=== PATIENT | male | born 1955 | race Caucasian/White ===

== ENCOUNTER 2016-10-30 12:56 | Emergency (ER) | payer OTHER ==
[2016-10-30 13:19] VITALS: BP 150/86; PULSE 99; RESP 18; TEMP 98.8; O2SAT 92
--- NOTE | 2016-10-30 14:07 | DX ---
Chest, PA and Lateral History: Cough, chest pain, bronchitis COMPARISON: None Findings: There is a linear scar in the right lower lung zone. On the lateral view a nodular density overlies the inferior mid heart, and may represent consolidation in the right middle lobe. Perihilar bronchial wall thickening and mildly prominent lung volumes are present. Heart size and pulmonary vas cularity are normal. There is no adenopathy or mass lesion. There is no pleural effusion. There is de generative spurring throughout the mid and lower thoracic spine suggestive of DISH. Impression: 1. Airways disease. 2. Possible right middle lobe consolidation +- nodule. Recommendation: If there are any old outside x-rays, we would be happy to review them to assess for i nterval change. If unavailable, recommend follow-up chest radiography after clinically appropriate an tibiotic therapy. If the patient is not a candidate for antibiotics, then consider noncontrast chest CT if the right middle lobe densities are new or if there are no old outside chest x-rays for review. Results discussed with Zhane Schwartz at the [facility] [place] ED at 2:05 PM.
--- NOTE | 2016-10-30 14:12 | UCPHY ---
H & P Patient Type: New Chief Complaint Nursing Narrative: few days of cough and pain w cough .worried about bronchitis. Time Seen by Provider: 10/30/16 14:08 HPI/ROS: HPI: 61-year-old gentleman presents to urgent care with chief concern chest congestion and productive cough that onset suddenly 2 days ago associated with discomfort only when he coughs. Denies fever, chills, nasal congestion, sore throat, shortness of breath, abdominal pain, nausea, vomiting, diarrhea, rash. No history of asthma or pneumonia. Never smoker. No pleuritic pain. No recent long car or plane travel. No calf swelling or discomfort. ROS:10 point review of systems is negative other than as stated in HPI Source: Patient - Medical/Surgical History Other PMH: PCP [facility]. FLU vacc UTD . Tet UTD. Surg :Ortho /Appy Tonsilectomy. MED .DM chol thyroid - Family History Significant Family History: No pertinent family hx - Social History Smoking Status: Never smoked Alcohol Use: None Drug Use: None - Physical Exam Exam: Vital signs stable, reviewed by me General: Awake, alert, calm, cooperative. No acute distress. Head: Normalocephalic. Atraumatic. EENT: PERRLA. EOMI. No pallor or injection. Anicteric. No nystagmus. No injection. TMs intact bilaterally with normal landmarks. No rhinnorhea, nasal passages clear. Oropharynx without redness, exudates, or lesions. Tonsils 2+ bilaterally, no exudates. Neck: Supple, nontender. No lymphadenopathy. Full range of motion. No meningismus. Respiratory: Breathing unlabored. Breath sounds equal bilaterally and clear to auscultation. No adventitious sounds. CV: Chest nontender, atraumatic. Heart rate regular. No murmur, distal pulses 2+ bilaterally. Brisk cap refill all extremities. GI: Abdomen soft, nontender. Bowel sounds normoactive and positive x4 quadrants. Neuro: Alert. Oriented x 3. Speech clear. Sensation intact all extremities. Skin: Skin warm, dry, intact. No rashes. Skin turgor normal. Extremities: Moves all extremities. Strength 5+ all extremities. Constitutional: Initial Vital Signs Temperature (C) 37.1 C 10/30/16 13:15 Heart Rate 99 10/30/16 13:15 Respiratory Rate 18 10/30/16 13:15 Blood Pressure 150/86 H 10/30/16 13:15 O2 Sat (%) 92 10/30/16 13:15 O2 Delivery Mode Room Air Allergies/Adverse Reactions: No Known Allergies Allergy (Unverified 10/30/16 13:18) Home Medications: Medication Instructions Recorded Albuterol Hfa Anes Only [Proair 2 puffs IH QID PRN #1 mdi 10/30/16 Hfa Anes Only] Azithromycin [Zithromax 250 mg 250 mg PO DAILY #6 tab 10/30/16 tab(RX)] Glucosamine & Chondroitin Cap 10/30/16 LEVOTHYROXINE SODIUM 10/30/16 Metformin HCl 10/30/16 SIMVASTATIN 10/30/16 Medical Decision Making - Diagnostics Imaging: Chest, PA and Lateral History: Cough, chest pain, bronchitis COMPARISON: None Findings: There is a linear scar in the right lower lung zone. On the lateral view a nodular density overlies the inferior mid heart, and may represent consolidation in the right middle lobe. Perihilar bronchial wall thickening and mildly prominent lung volumes are present. Heart size and pulmonary vascularity are normal. There is no adenopathy or mass lesion. There is no pleural effusion. There is degenerative spurring throughout the mid and lower thoracic spine suggestive of DISH. Impression: 1. Airways disease. 2. Possible right middle lobe consolidation +- nodule. Recommendation: If there are any old outside x-rays, we would be happy to review them to assess for interval change. If unavailable, recommend follow-up chest radiography after clinically appropriate antibiotic therapy. If the patient is not a candidate for antibiotics, then consider noncontrast chest CT if the right middle lobe densities are new or if there are no old outside chest x-rays for review. Results discussed with Zhane Schwartz [place] [facility] [place] 2:05 PM. Dictated By: Marv James MD ED Course/Re-evaluation: 61-year-old gentleman presents to urgent care with 48 hours of productive cough. He has no associated shortness of breath. Vitals are stable. Oxygen saturation 92% on room air. He has discomfort in his chest anteriorly only when he coughs. Is not present when he is not coughing. I recommended EKG and patient refused. I have discussed his x-ray findings and need for repeat x-ray after completion of antibiotic to rule out nodule. I have given him a copy of his x-ray report, as well as his x-ray on disc. I have advised him to follow up with primary care this week with his x-ray to discuss this. He verbalizes understanding and agrees to do so. I have advised him that if his symptoms worsen in any way he should go to emergency department. He agrees to do so. Flu swab negative Differential Diagnosis: Differential diagnosis includes but is not limited to bronchitis, pneumonia, influenza, CA, ACS - Data Points Laboratory Results: 10/30/16 14:05 Influenza Typ A,B (DFA) NEGATIVE FOR FLU (NEGATIVE) Departure - Departure Disposition: Home, Routine, Self-Care Clinical Impression: Bronchitis, Reactive airway disease Condition: Good Instructions: Acute Bronchitis (ED), Reactive Airways Disease (ED) Additional Instructions: Plan: Follow up with primary care for recheck by Sunday without fail--When you call to schedule appointment, please let the office know you are an "ER follow up" appointment" Take your x-ray report and your paperwork to follow-up visit As discussed, your x-ray should be repeated 2 weeks after completion of antibiotic for comparison Z-Augustus as prescribed Use your albuterol inhaler 2 puffs every 4-6 hours for shortness of breath, wheezing. If he developed ongoing chest pain or shortness of breath go to emergency room promptly You declined any EKG here today Referrals: [place],. [Primary Care Provider] - As per Instructions Prescriptions: Albuterol Hfa Anes Only [Proair Hfa Anes Only] 2 puffs IH QID PRN #1 mdi PRN Reason: Short Of Breath/Dyspnea Azithromycin [Zithromax 250 mg tab(RX)] 250 mg PO DAILY #6 tab - PQRS PQRS Measurement: 134: Depression screening and followup, PRIME MD-PHQ2 (12 years and older) Over the last 2 weeks, how often have you been bothered by any of the following problems? 1. Feeling down, depressed, or hopeless? 2. Little interest or pleasure in doing things? Patient answered no to both 1 and 2 130: Documentation of medications. Reviewed all patient medications, doses, route and frequency. 226: Do you smoke? No 47: 65 and older: Advanced care planning. Patient refused 51: 18 years old and older with diagnosis of COPD, spirometry performance. Patient has no history of COPD 52: 18 years old and older with COPD and symptoms of COPD or FEV1<60% no history of COPD
== END 2016-10-30 14:35 | disposition home or self-care (01) ==
LOC: CED 12:56
DX: J40 Bronchitis, not specified as acute or chronic (principal)
CPT/HCPCS: 71020-PO; 87400-PO; G0463-PO